=== PATIENT | male | born 1965 | race Caucasian/White ===

== ENCOUNTER 2020-02-14 06:41 | Outpatient (CLI) | payer OTHER ==
[2020-02-14 13:39] LABS: #Basophils 0.1 10x3/uL (0.0-0.2); #Eosinphils 0.2 10x3/uL (0.0-0.5); #Monocytes 0.4 10x3/uL (0.0-1.1); %Basophils 0.7 % (0.0-2.0); %Eosinophils 2.5 % (0.0-6.0); %Lymphocytes 30.5 % (18.0-47.0); %Monocytes 6.1 % (0.0-10.0); %Neutrophils 59.3 % (40.0-75.0); Hemoglobin 15.7 g/dL (14.0-18.0); Mean Corpuscular HGB CONC 32.9 G/DL (32.0-36.0); Mean Corpuscular Hemoglobin 27.9 PG (27.0-33.0); Mean Corpuscular Volume 84.9 fl (80.0-100.0); Mean Platelet Volume 9.6 fl (7.4-10.4); Platelet Count 280 10x3/uL (130-400); RBC Distribution Width 13.1 % (11.5-14.5); Red Blood Cell (RBC) Count 5.62 10x6/uL (4.40-5.80); White Blood Cell (WBC) Count 6.7 10x3/uL (4.5-11.0)
[2020-02-14 14:04] LABS: Anion Gap 19 mmol/L (10-20); BUN (Urea Nitrogen) 15 mg/dL (8.4-25.7); Calc. Creatinine Clearance 0 mL/min (70-130); Calcium 9.4 mg/dL (7.8-10.44); Carbon Dioxide 21 mmol/L (22-29); Chloride 104 mmol/L (98-107); Estimated GFR-MDRD 81; Glucose 85 mg/dL (70-105); Potassium 4.4 mmol/L (3.5-5.1); Sodium 140 mmol/L (136-145)
[2020-02-15 20:28] LABS: SARS-CoV-2 MS2 Positive; SARS-CoV-2 N Gene Negative; SARS-CoV-2 S Gene Negative; SARS-CoV-2 by NAA Not Detected (NotDetected); SARS-CoV-2 orf1ab Negative
--- NOTE | 2020-02-18 06:57 | EKG ---
Test Reason : Blood Pressure : / mmHG Vent. Rate : 085 BPM Atrial Rate : 085 BPM P-R Int : 164 ms QRS Dur : 104 ms QT Int : 360 ms P-R-T Axes : 040 017 004 degrees QTc Int : 428 ms Normal sinus rhythm Minimal voltage criteria for LVH, may be normal variant Inferior infarct , age undetermined Abnormal ECG No previous ECGs available Confirmed by SUKUMAR TREVINO MD ([id number]) on 02/18/2020 6:57:23 AM Referred By: KAILA Confirmed By:SUKUMAR TREVINO MD
== END 2020-02-14 06:42 | disposition home or self-care (01) ==
LOC: LABBT 06:41
PROVIDERS: ATTEND Orthopaedic Surgery
DX: Z01.818 Encounter for other preprocedural examination (principal); M17.11 Unilateral primary osteoarthritis, right knee; Z20.828 Contact with and (suspected) exposure to other viral communicable diseases
CPT/HCPCS: 80048; 85025; 87635; 93005; 93010; U0003

== ENCOUNTER 2020-02-19 07:37 | Day surgery (SDC) | payer OTHER ==
[2020-02-18 10:20] VITALS: BMI 32.6
[2020-02-19] MEDS ORDERED: PROPOFOL 20 ML ONE (08:05)
[2020-02-19] MEDS ORDERED: Fentanyl 100 MCG/2 ML VIAL ONE ×2 (09:42→11:05)
[2020-02-19] MEDS ORDERED: Lidocaine 1% PF 5 ML VIAL ONE (11:17)
[2020-02-19] MEDS ORDERED: Lidocaine 2% w/Epinephrine 1:200K 20 ML VIAL ONE (11:17)
[2020-02-19] MEDS ORDERED: Bupivacaine HCl 0.5%/Epinephrine 1:200,000/PF 30 ml Vial ONE (11:17)
[2020-02-19] MEDS ORDERED: PROPOFOL 200 MG/20 ML VIAL ONE (11:17)
--- NOTE | 2020-02-19 17:00 | OP ---
DATE OF PROCEDURE: 02/19/2020 PREOPERATIVE DIAGNOSIS: Right knee pain secondary to significant arthritic change in the medial compartment as well as a loose pieces of cartilage and degenerative meniscus tears. POSTOPERATIVE DIAGNOSIS: Right knee pain secondary to significant arthritic change in the medial compartment as well as a loose pieces of cartilage and degenerative meniscus tears. PROCEDURE PERFORMED: Right knee arthroscopy with debridement and shaving. [employer]: None. ESTIMATED BLOOD LOSS: Minimal. COMPLICATIONS: None. ANESTHESIA: He did have a general anesthetic. He also had a local knee block. DISPOSITION: He did go to recovery room in stable condition. INDICATIONS: A 54-year-old male who has had months of severe pain in his right knee, which had improved since offloading his knee using crutches. The patient was found to have significant arthritic change in the knee and a fracture of insufficiency. The patient previously years ago had a similar incident with his left knee and underwent a debridement and shaving of the left knee, and at this time, still has his [place] knee as he has bearable pain and discomfort in that knee. Therefore, he wished to try the same treatment with the right knee. DESCRIPTION OF PROCEDURE: After all appropriate consent forms were explained and signed, Francisco Javier was taken to the operating room and at this time was given general anesthetic. Once the level of anesthesia was appropriate, tourniquet was placed on the right thigh. Leg was placed in arthroscopic leg soto. The limb was then prepped and draped in standard surgical fashion. The limb was exsanguinated and tourniquet was taken to 300 mmHg. Inferolateral portal was then established. Scope was placed into the joint. A needle localization technique was then used to make our medial working portal. Diagnostic arthroscopy commenced. In the notch, we did see the ACL and PCL, which were probed and found to be intact. There was a ganglion type structure at the base of the ACL of small amount of calcified tissue. This was debrided and removed with the shaver. The medial compartment showed the patient has severe arthritic change with absolutely no cartilage on the majority of the femur. On the tibia, there was an area with grade 4 changes and this was noted to be anteromedial and remaining part of the medial tibial plateau did have some cartilage remnant. Medial meniscus was found to have degenerative tearing. The shaver was used to remove any loose flaps. Any loose cartilage flaps were removed at this time. There were circumferential osteophyte on the medial femoral condyle, The lateral compartment was evaluated and overall found to be in pretty good condition including the femur, tibia, and lateral meniscus. Gutters were swept through. There were some small loose bodies noted in both gutters. There was fair amount of scar tissue noted in each gutter with some synovial tissue as well. This was debrided with a shaver. We then evaluated the patellofemoral joint. The patella had a distal osteophyte noted, and when I took the patient's knee through range of motion, this seemed to catch distal to the kneecap itself on the patellar tendon. Thus, this was taken down with a shaver back to the [place] amount of patella. The trochlea had some change in the central region, but no significant cartilage flaps were encountered. The remaining patella itself did show the proximal lateral facet to have some cartilage damage with a small loose chondral flap, which was debrided gently. At this time, we went through the knee one more time, making sure there were no more loose bodies or any other areas that needed to be debrided, and when we were satisfied that there was none, the camera was removed. The knee was drained. The portals were closed with simple nylon stitch. Bulky sterile dressing was applied and tourniquet was let down. Toes pinked up nicely. The patient was awakened and he was taken to recovery room in stable condition. All counts were correct at the end of the case and he did receive preoperative IV antibiotics. Job ID: [id number] [id number]
== END 2020-02-19 12:55 | disposition home or self-care (01) ==
LOC: SDC 07:37
PROVIDERS: ATTEND Orthopaedic Surgery
PROC: 0SBC4ZZ Excision of Right Knee Joint, Percutaneous Endoscopic Approach (ICD-10-PCS; principal; 2020-02-19)
DX: M23.303 Other meniscus derangements, unspecified medial meniscus, right knee (principal); M17.0 Bilateral primary osteoarthritis of knee; M23.41 Loose body in knee, right knee; M25.761 Osteophyte, right knee; I10 Essential (primary) hypertension; E78.00 Pure hypercholesterolemia, unspecified; K21.9 Gastro-esophageal reflux disease without esophagitis; Z79.82 Long term (current) use of aspirin; Z79.899 Other long term (current) drug therapy; Z88.5 Allergy status to narcotic agent; Z91.018 Allergy to other foods; Z98.890 Other specified postprocedural states
CPT/HCPCS: J0690; J2704; J3010

== ENCOUNTER 2021-04-21 15:10 | Outpatient (CLI) | payer OTHER ==
[2021-04-21 15:57] LABS: Bilirubin Neg (Negative); Blood, Urine 10 (Negative); Clarity Clear (Clear); Glucose, Urine (Dipstick) Normal (Negative); Ketone, Urine Negative (Negative); Leukocyte Negative (Negative); Nitrite Negative (Negative); Protein, Urine (Dipstick) Negative (Neg-Trace); Specific Gravity, Urine 1.015 (1.002-1.036); Urobilinogen Normal mg/dL (Less than 2)
[2021-04-21 15:58] LABS: #Eosinphils 0.1 10x3/uL (0.0-0.5); #Monocytes 0.3 10x3/uL (0.0-1.1); #Neutrophils 2.8 10x3/uL (1.5-8.4); %Basophils 0.4 % (0.0-2.0); %Eosinophils 2.3 % (0.0-6.0); %Lymphocytes 30.6 % (18.0-47.0); %Monocytes 6.6 % (0.0-10.0); %Neutrophils 59.3 % (40.0-75.0); Hemoglobin 14.9 g/dL (13.5-17.5); Mean Corpuscular HGB CONC 34.1 g/dL (32.0-36.0); Mean Corpuscular Hemoglobin 29.2 pg (27.0-33.0); Mean Corpuscular Volume 85.7 fl (81.2-95.1); Mean Platelet Volume 9.4 fl (7.4-10.4); Platelet Count 199 10x3/uL (150-450); RBC Distribution Width 12.9 % (11.5-14.5); White Blood Cell (WBC) Count 4.7 10x3/uL (3.5-10.5)
[2021-04-21 16:14] LABS: Prothrombin Time 10.7 sec (9.5-12.1)
[2021-04-21 16:16] LABS: Anion Gap 12 mmol/L (10-20); BUN (Urea Nitrogen) 17 mg/dL (8.4-25.7); Calc. Creatinine Clearance 0 mL/min (70-130); Calcium 9.3 mg/dL (7.8-10.44); Carbon Dioxide 26 mmol/L (22-29); Chloride 108 mmol/L (98-107); Glucose 81 mg/dL (70-105); Potassium 3.9 mmol/L (3.5-5.1); Sodium 142 mmol/L (136-145)
[2021-04-21 23:40] LABS: SARS-CoV-2 PCR by NAA DETECTED (NotDetected)
== END 2021-04-21 15:11 | disposition home or self-care (01) ==
LOC: LABBT 15:10
PROVIDERS: ATTEND Orthopaedic Surgery
DX: U07.1 COVID-19 (principal); Z01.818 Encounter for other preprocedural examination; M17.11 Unilateral primary osteoarthritis, right knee
CPT/HCPCS: 71046; 80048; 81003; 85025; 85610; 86850; 86900; 86901; 87081; 93005; 93010; U0003; U0005

== ENCOUNTER 2021-05-26 15:02 | Outpatient (CLI) | payer OTHER ==
[2021-05-26 16:16] LABS: #Basophils 0.1 10x3/uL (0.0-0.2); #Eosinphils 0.3 10x3/uL (0.0-0.5); #Monocytes 0.4 10x3/uL (0.0-1.1); #Neutrophils 3.5 10x3/uL (1.5-8.4); %Basophils 1.2 % (0.0-2.0); %Eosinophils 4.3 % (0.0-6.0); %Lymphocytes 34.1 % (18.0-47.0); %Neutrophils 53.8 % (40.0-75.0); Hemoglobin 15.2 g/dL (13.5-17.5); Mean Corpuscular HGB CONC 33.3 g/dL (32.0-36.0); Mean Corpuscular Hemoglobin 28.8 pg (27.0-33.0); Mean Corpuscular Volume 86.4 fl (81.2-95.1); Mean Platelet Volume 9.6 fl (7.4-10.4); Platelet Count 256 10x3/uL (150-450); RBC Distribution Width 13.2 % (11.5-14.5); Red Blood Cell (RBC) Count 5.28 10x6/uL (4.32-5.72); White Blood Cell (WBC) Count 6.5 10x3/uL (3.5-10.5)
[2021-05-26 16:18] LABS: Bilirubin Neg (Negative); Blood, Urine Negative (Negative); Clarity Clear (Clear); Glucose, Urine (Dipstick) Normal (Negative); Ketone, Urine Negative (Negative); Leukocyte Negative (Negative); Nitrite Negative (Negative); Protein, Urine (Dipstick) Negative (Neg-Trace); Specific Gravity, Urine 1.015 (1.002-1.036)
[2021-05-26 16:28] LABS: Prothrombin Time 10.6 sec (9.5-12.1)
[2021-05-26 16:31] LABS: Anion Gap 12 mmol/L (10-20); BUN (Urea Nitrogen) 13 mg/dL (8.4-25.7); Calc. Creatinine Clearance 0 mL/min (70-130); Calcium 9.3 mg/dL (7.8-10.44); Carbon Dioxide 27 mmol/L (22-29); Chloride 106 mmol/L (98-107); Glucose 88 mg/dL (70-105); Potassium 4.3 mmol/L (3.5-5.1); Sodium 141 mmol/L (136-145)
== END 2021-05-26 15:03 | disposition home or self-care (01) ==
LOC: LABBT 15:02
PROVIDERS: ATTEND Orthopaedic Surgery
DX: Z01.812 Encounter for preprocedural laboratory examination (principal); M17.11 Unilateral primary osteoarthritis, right knee
CPT/HCPCS: 80048; 81003; 85025; 85610; 86850; 86900; 86901